=== PATIENT | female | born 1995 | race Two or more races ===

== ENCOUNTER 2017-08-26 09:09 | Outpatient (CLI) | payer OTHER | END 2017-08-26 11:07 | disposition home or self-care (01) | LOC: RAD 501 09:09 | DX: M62.838 Other muscle spasm (principal) ==

== ENCOUNTER 2017-10-19 17:40 | Emergency (ER) | payer OTHER ==
[~2017-10-19] VITALS: Ht 165.1 cm; Wt 49.9 kg
== END 2017-10-19 20:16 | disposition home or self-care (01) ==
LOC: ER 17:40
DX: J06.9 Acute upper respiratory infection, unspecified (principal); J11.1 Influenza due to unidentified influenza virus with other respiratory manifestations

== ENCOUNTER → 2018-06-15 | Outpatient (CLI) | payer OTHER | END | disposition home or self-care (01) | LOC: RAD 501 10:27 | DX: M99.01 Segmental and somatic dysfunction of cervical region (principal); M99.02 Segmental and somatic dysfunction of thoracic region; M99.03 Segmental and somatic dysfunction of lumbar region ==

== ENCOUNTER 2018-07-09 11:01 | Outpatient (CLI) | payer OTHER | END 2018-07-09 11:07 | disposition home or self-care (01) | LOC: SONOGRAMA 11:01 | DX: M79.671 Pain in right foot (principal) ==

== ENCOUNTER 2018-11-03 06:36 | Emergency (ER) | payer OTHER ==
[~2018-11-03] VITALS: Ht 160 cm; Wt 52.2 kg
== END 2018-11-03 11:37 | disposition home or self-care (01) ==
LOC: ER 06:36
DX: J06.9 Acute upper respiratory infection, unspecified (principal); E86.0 Dehydration